=== PATIENT | female | born 1935 | race Caucasian/White ===

== ENCOUNTER → 2017-02-01 | Outpatient (CLI) | payer MEDICARE, MEDICAID ==
[2017-02-01 16:56] LABS: HEMOGLOBIN 13.3 g/dL (12.2-16.2); LYMPH # 1.8 K/mm3 (0.7-4.5); LYMPH % 40.3 % (10-50.0)
[2017-02-01 17:44] LABS: BUN 12 mg/dL (7-18)
[2017-02-01 17:57] LABS: GFR (ESTIMATED) 60 ML/MIN (59-)
== END ==
LOC: LAB 16:17
PROVIDERS: Emergency Medicine
DX: I10 Essential (primary) hypertension (principal); R73.9 Hyperglycemia, unspecified